=== PATIENT | female | born 1960 | race Caucasian/White ===

== ENCOUNTER 2019-04-23 12:33 | Emergency (ER) | payer OTHER ==
[~2019-04-23] VITALS: Ht 170.2 cm; Wt 63.5 kg
[~2019-04-23 12:33] MED LIST: BIRTH CONTROL; NORCO 5-325 TA1 EACH PO
[2019-04-23] MEDS ORDERED: VITAMIN D (12:57)
[2019-04-23 13:22] LABS: ABSOLUTE BASOPHILS 0.1 thou/uL (0.0-0.2); ABSOLUTE EOSINOPHILS 0.1 thou/uL (0.0-0.7); ABSOLUTE LYMPHOCYTES 1.2 thou/uL (0.8-5.3); ABSOLUTE MONOCYTES 0.6 thou/uL (0.0-1.2); ABSOLUTE NEUTROPHILS 4.6 thou/uL (1.6-8.1); BASOPHILS 0.8 %; EOSINOPHILS 1.7 %; HEMATOCRIT 47.4 % (37.0-47.0); HEMOGLOBIN 15.7 gm/dL (12.0-15.0); LYMPHOCYTES 18.9 %; MCH 31.3 pg (26.0-34.0); MCHC 33.1 g/dL (28.0-37.0); MCV 94.7 fL (80.0-100.0); MONOCYTES 8.5 %; MPV 7.8 fl. (7.2-11.1); NUCLEATED RBCS 0 /100WBC; PLATELET COUNT* 257 thou/uL (150-400); POLYS 70.1 %; RBC 5.01 mil/uL (4.20-5.00); RDW-CV 13.1 % (10.5-14.5); WBC 6.6 thou/uL (4.0-11.0)
[2019-04-23 13:34] LABS: ANION GAP 12 mmol/L (7-16); BUN 14 mg/dL (7-18); CALCIUM 10.1 mg/dL (8.5-10.1); CHLORIDE 104 mmol/L (98-107); CO2 28 mmol/L (21-32); CREATININE 0.7 mg/dL (0.6-1.3); GLUCOSE 89 mg/dL (70-99); POTASSIUM 3.9 mmol/L (3.5-5.1); SODIUM 144 mmol/L (136-145)
[2019-04-23 13:39] LABS: URINE BILIRUBIN NEGATIVE (Negative); URINE BLOOD NEGATIVE (Negative); URINE CLARITY CLEAR; URINE COLOR YELLOW; URINE GLUCOSE-RANDOM NEGATIVE (Negative); URINE KETONES NEGATIVE (Negative); URINE LEUKOCYTES-REFLEX NEGATIVE (Negative); URINE NITRITE-REFLEX NEGATIVE (Negative); URINE PROTEIN NEGATIVE (Negative); URINE SPECIFIC GRAVITY <= 1.005 (1.005-1.030); URINE UROBILINOGEN 0.2 E.U./dl (0.2-1.0)
[2019-04-23 13:43] LABS: ALKALINE PHOSPHATASE 77 U/L (46-116); LIPASE 115 U/L (73-393); SGOT 16 U/L (15-37); SGPT 17 U/L (30-65); TOTAL BILIRUBIN 0.5 mg/dL (<0.1-1.0); TROPONIN-I LEVEL <0.06 ng/mL (<0.06)
[2019-04-23] MEDS ORDERED: ONDANSETRON HCL4 M2 PO (14:55)
[2019-04-23] MEDS ORDERED: FLAGYL500 M1 PO (14:55)
[2019-04-23] MEDS ORDERED: CIPRO500 MG PO (14:55)
[2019-04-23 15:05] VITALS: BP 108/57
--- NOTE | 2019-04-23 15:44 | EKG ---
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
== END 2019-04-23 15:06 | disposition home or self-care (01) ==
LOC: M.ERS 12:33
PROVIDERS: Nurse Practitioner Family
DX: K52.9 Noninfective gastroenteritis and colitis, unspecified (principal); K82.0 Obstruction of gallbladder; Z88.8 Allergy status to other drugs, medicaments and biological substances

== ENCOUNTER 2019-05-11 20:15 | Inpatient (IN) | payer OTHER ==
[~2019-05-11] VITALS: Ht 170.2 cm; Wt 63.5 kg
--- NOTE | ~2019-05-11 | PROC ---
[address] [address] PROCEDURE REPORT Name: LEANN PETERSON Room: [address]#: [id number] Admission: 05/11/19 Attend Phys: Krista Chau MD Discharge: 05/15/19 Date of : 64 Report #: [id number] THIS REPORT FOR: //name// For GI report, please see the Provation report in Perceptive 7 content. By: 0639Medical Records Staff JORDAN /NADIA
--- NOTE | ~2019-05-11 | CON ---
[address] [address] CONSULTATION Name: KRISTEN,LEANN L Room: [address] IN .R.#: [id number] Admission: 05/11/19 Attend Phys: Krista Chau MD Discharge: Date of : 64 Report #: [id number] THIS REPORT FOR: //name// CC: Shayna Chau DICTATED BY: Christine Marquis [facility] DATE OF SERVICE: 05/13/2019 Please note at the time of this dictation, the patient was seen and physically examined by myself. REASON FOR CONSULTATION: Abdominal pain and colitis. HISTORY OF PRESENT ILLNESS: This 68-year-old female presented to the Emergency Room with ongoing nausea and abdominal pains radiating into her back, which she has had for the past 3 weeks. She was recently seen several weeks ago on 04/23/2019 for stomach issues and at that time here in the ER, she was diagnosed with mild nonspecific colitis and she was placed on Cipro and Flagyl. Her symptoms continued. She went and saw her PCP who then ordered an ultrasound, which was negative of her gallbladder and she was to have a PIPIDA scan, which is ordered for 05/25/2019 to further evaluate. However, her complaints of abdominal pain worsens with eating and drinking and she was having some nausea and vomiting and then associated some diarrhea, but she denies any bright red blood or black stools at this time. She is currently rating her pain 8-9/10 at this time. She has been having a low grade fever as well. She has noted at home. ALLERGIES: MACROBID. MEDICATIONS: From home, vitamin D. PAST MEDICAL HISTORY: Essentially negative. PAST SURGICAL HISTORY: She had a bladder sling. FAMILY HISTORY: Cousin with Crohn's disease on maternal side and maternal grandmother with ovarian cancer. SOCIAL HISTORY: Denies any alcohol, tobacco or illegal drug use. REVIEW OF SYSTEMS: Twelve-point review of systems is essentially negative except what is mentioned in [place] [address] CONSULTATION Name: LEANN PETERSON Amaury Room: [address] IN [facility]#: [id number] Admission: 05/11/19 Attend Phys: Krista Chau MD Discharge: Date of : 64 Report #: [id number] PHYSICAL EXAMINATION: VITAL SIGNS: Temperature 36.6, pulse 81, respirations are 16 and blood pressure is 95/55. HEART: Regular rate and rhythm. LUNGS: Clear. ABDOMEN: Soft, positive bowel sounds in all 4 quadrants with right-sided tenderness noted in the lower and upper quadrants and over to the mid upper quadrant as well. LABORATORY DATA: Hemoglobin is 12.4, white count is 8.2 and platelets 198. GFR is 74. LFTs are normal. ESR is 10. CT done on the shows thickening of the cecum, ascending and transverse colon. As mentioned earlier, ultrasound outpatient was normal. IMPRESSION: 1. Abdominal pain. 2. Abnormal CT, right-sided wall thickening. 3. Nausea and vomiting. 4. Family history of Crohn's and ovarian cancer. PLAN: 1. Colonoscopy tomorrow. 2. Continue Cipro and Flagyl. 3. We will add a scopolamine patch for her nausea. 4. Consider hepatobiliary scan on Saturday to complete her full workup. 5. Further recommendations to be made once the procedure has been performed. Thank you for allowing us to participate in this patient's care. Please do not hesitate to call with any questions in regard to this consult. By: 1200 [id number] Winkler MD /nt
[~2019-05-11 20:15] MED LIST changes: +CIPRO500 MG PO; +FLAGYL500 M1 PO; +ONDANSETRON HCL4 M2 PO; +VITAMIN D PO
[2019-05-11 20:23] VITALS: BP 128/78
[2019-05-11 21:39] LABS: URINE BLOOD TRACE (Negative); URINE CLARITY CLEAR; URINE COLOR YELLOW; URINE GLUCOSE-RANDOM NEGATIVE (Negative); URINE LEUKOCYTES-REFLEX NEGATIVE (Negative); URINE NITRITE-REFLEX NEGATIVE (Negative); URINE PROTEIN NEGATIVE (Negative); URINE SPECIFIC GRAVITY 1.025 (1.005-1.030); URINE UROBILINOGEN 0.2 E.U./dl (0.2-1.0)
[2019-05-11 21:44] LABS: URINE BILIRUBIN 1+ (Negative); URINE KETONES 3+ (Negative)
[2019-05-11 21:46] LABS: ACETEST (KETONE CONFIRMATORY) Large (Negative); ICTOTEST (BILI CONFIRMATORY) Negative (Negative)
[2019-05-11 21:47] LABS: ABSOLUTE BASOPHILS 0.1 thou/uL (0.0-0.2); ABSOLUTE EOSINOPHILS 0.1 thou/uL (0.0-0.7); ABSOLUTE LYMPHOCYTES 1.3 thou/uL (0.8-5.3); ABSOLUTE MONOCYTES 1.1 thou/uL (0.0-1.2); ABSOLUTE NEUTROPHILS 9.2 thou/uL (1.6-8.1); BASOPHILS 0.5 %; HEMATOCRIT 42.5 % (37.0-47.0); LYMPHOCYTES 10.8 %; MCH 31.1 pg (26.0-34.0); MCHC 33.1 g/dL (28.0-37.0); MCV 94.1 fL (80.0-100.0); MPV 7.5 fl. (7.2-11.1); NUCLEATED RBCS 0 /100WBC; PLATELET COUNT* 247 thou/uL (150-400); POLYS 78.7 %; RBC 4.51 mil/uL (4.20-5.00); RDW-CV 13.1 % (10.5-14.5); WBC 11.7 thou/uL (4.0-11.0)
[2019-05-11 21:54] LABS: CREATININE 0.7 mg/dL (0.6-1.3); POTASSIUM 4.5 mmol/L (3.5-5.1)
[2019-05-11 21:59] LABS: ALBUMIN 3.7 g/dL (3.4-5.0); TOTAL BILIRUBIN 0.6 mg/dL (<0.1-1.0); TOTAL PROTEIN 7.1 g/dL (6.4-8.2)
[2019-05-12 01:06] VITALS: BP 97/57
[2019-05-12 01:14] VITALS: BP 95/67
[2019-05-12 07:15] VITALS: BP 97/59
[2019-05-12 16:30] VITALS: BP 101/64
[2019-05-12 20:15] VITALS: BP 95/55
[2019-05-13 05:21] LABS: HEMATOCRIT 36.2 % (37.0-47.0); HEMOGLOBIN 12.4 gm/dL (12.0-15.0); MCH 32.6 pg (26.0-34.0); MCHC 34.2 g/dL (28.0-37.0); MCV 95.3 fL (80.0-100.0); MPV 8.2 fl. (7.2-11.1); RBC 3.8 mil/uL (4.20-5.00); RDW-CV 12.6 % (10.5-14.5); WBC 8.2 thou/uL (4.0-11.0)
[2019-05-13 05:35] LABS: CALCIUM 8.4 mg/dL (8.5-10.1); CREATININE 0.8 mg/dL (0.6-1.3); MAGNESIUM 1.7 mg/dL (1.8-2.4); POTASSIUM 4.7 mmol/L (3.5-5.1)
[2019-05-13 08:00] VITALS: BP 89/55
[2019-05-13 16:33] VITALS: BP 92/56
[2019-05-13 22:08] VITALS: BP 121/67
[2019-05-14 07:30] VITALS: BP 104/64
[2019-05-14 09:41] VITALS: BP 104/64
[2019-05-14 10:15] VITALS: BP 103/72
[2019-05-14 16:30] VITALS: BP 101/53
[2019-05-14 20:00] VITALS: BP 94/55
[2019-05-15 03:56] LABS: ABSOLUTE EOSINOPHILS 0.6 thou/uL (0.0-0.7); ABSOLUTE LYMPHOCYTES 1.2 thou/uL (0.8-5.3); ABSOLUTE MONOCYTES 0.8 thou/uL (0.0-1.2); ABSOLUTE NEUTROPHILS 4.4 thou/uL (1.6-8.1); BASOPHILS 0.4 %; HEMATOCRIT 39.3 % (37.0-47.0); HEMOGLOBIN 13.2 gm/dL (12.0-15.0); LYMPHOCYTES 16.4 %; MCH 31.4 pg (26.0-34.0); MCHC 33.7 g/dL (28.0-37.0); MCV 93.2 fL (80.0-100.0); MONOCYTES 11.9 %; MPV 7.6 fl. (7.2-11.1); NUCLEATED RBCS 0 /100WBC; PLATELET COUNT* 235 thou/uL (150-400); POLYS 62.3 %; RBC 4.22 mil/uL (4.20-5.00); WBC 7.1 thou/uL (4.0-11.0)
[2019-05-15 04:17] LABS: CALCIUM 8.9 mg/dL (8.5-10.1); CREATININE 0.6 mg/dL (0.6-1.3); POTASSIUM 3.8 mmol/L (3.5-5.1)
[2019-05-15 07:35] VITALS: BP 123/82
[2019-05-15 08:47] VITALS: BP 103/72
[2019-05-15] MEDS ORDERED: PROTONIX40 M1 PO (09:32)
[2019-05-15] MEDS ORDERED: BENTYL 20 MG TA20 M1 PO (09:33)
[2019-05-15 09:35] VITALS: BP 103/72
[2019-05-15 11:28] VITALS: BP 103/72
--- NOTE | 2019-05-15 17:06 | PATH ---
[address] [address] PATHOLOGY RPT PROCEDURE Name: ELVI PETERSON Room: [address] [place] .#: [id number] Admission: 05/11/19 Date of : 64 Discharge: 05/15/19 Report #: [id number] Path Case #: [id number] [facility] Accession Number: [id number] . 01 Material submitted: . PART A: duodenum - DUODENAL BIOPSY PART B: colon - RANDOM BIOPSIES OF RIGHT COLON. Modifiers: right . 02 Diagnosis: A. Duodenal biopsy: - Nonspecific moderate active duodenitis, negative for granulomas, significant intraepithelial lymphocytosis, viral inclusions and dysplasia. . B. Random biopsies of right colon: - Focal active colitis, negative for granulomas, viral inclusions and dysplasia. See comment. (EFRAIN:[place]; 05/15/2019) QMS/05/15/2019 . 02 Comment: The random biopsies of right colon (B) show benign colonic mucosa with easily identified focal active inflammation including cryptitis and several crypt abscesses. There is no significant basal lymphoplasma cytosis or crypt distortion to elevate a concern for inflammatory bowel disease, although this cannot be excluded. Ischemic features are also not apparent. The histologic differential includes use of nonsteroidal anti-inflammatory agents, acute self-limited colitis, infectious colitis and Crohn's disease. (EFRAIN:[facility]; 05/15/2019) . 02 Electronically signed: . Andres Rossi MD, Pathologist NPI- [id number] . 01 Gross description: . A. The specimen is received in formalin, labeled "[place], duodenal biopsy", are four irregular fragments of sethi soft tissues measuring 0.4 x 0.4 x 0.1 cm in aggregate, entirely submitted in A1. . B. The specimen is received in formalin, labeled "KristenElvi bradford, random biopsies of right colon", are few irregular fragments of sethi soft tissues measuring 0.5 x 0.4 x 0.1 cm in aggregate, entirely submitted in B1. ([facility]; 05/14/2019) SHS/SHS . 02 Pathologist provided ICD-10: K29.80, K52.9 . 02 [place] [address] PATHOLOGY RPT PROCEDURE Name: KRISTENELVI ACEVEDO Room: [address] IN [facility].#: [id number] Admission: 05/11/19 Date of : 64 Discharge: 05/15/19 Report #: [id number] Path Case #: [id number] CPT . 585214, [id number] Specimen Comment: A courtesy copy of this report has been sent to Specimen Comment: [phone], , . Specimen Comment: Report sent to ,DR JEFFREY / DR VARUN CUELLAR Performed at: [address], [place], [place] [id number] MD Chris Hankins MD Phone: [phone] Performed at: 02 [facility] [address], [place], [place] [id number] MD Andres Rossi MD Phone: [phone]
== END 2019-05-15 11:47 | disposition home or self-care (01) | DRG 872 ==
LOC: M.ERS 20:15 → M.ORTHSURG 23:20 → M.TBA-ER 23:20 → M.ORTHSURG 05-12 00:53
PROVIDERS: Emergency Medicine; Internal Medicine; ADMIT Internal Medicine
DX: A41.9 Sepsis, unspecified organism (principal); K52.9 Noninfective gastroenteritis and colitis, unspecified; K44.9 Diaphragmatic hernia without obstruction or gangrene; K64.8 Other hemorrhoids; K29.80 Duodenitis without bleeding; Z88.8 Allergy status to other drugs, medicaments and biological substances; Z80.41 Family history of malignant neoplasm of ovary; Z83.79 Family history of other diseases of the digestive system

== ENCOUNTER → 2020-12-16 | Outpatient (CLI) | payer OTHER ==
[~2020-12-16] MED LIST changes: +BENTYL 20 MG TA20 M1 PO; +PROTONIX40 M1 PO
== END ==
LOC: M.NUC 12-07 07:30
PROVIDERS: ATTEND Internal Medicine Gastroenterology
DX: R10.11 Right upper quadrant pain (principal)

== ENCOUNTER → 2020-12-23 | Outpatient (CLI) | payer OTHER | LOC: M.NUC 12-09 07:45 | PROVIDERS: ATTEND Internal Medicine Gastroenterology | DX: R10.11 Right upper quadrant pain (principal) ==